=== PATIENT | female | born 1970 | race Caucasian/White ===

== ENCOUNTER 2024-06-02 03:37 | Emergency (ER) | payer OTHER ==
[~2024-06-02] VITALS: Ht 172.7 cm; Wt 86.2 kg
[2024-06-02] MEDS ORDERED: Methocarbamol 500 MG Tab PO ONE (04:05)
[2024-06-02] MEDS ORDERED: Lidocaine 4% 1 Patch TOP ONE (04:05)
[2024-06-02] MEDS ORDERED: Naproxen 250 MG TAB PO ONE (04:05)
[2024-06-02] MEDS ORDERED: NAPR500 PO (05:07)
[2024-06-02] MEDS ORDERED: METHOCARBAMOL1000 MG PO (05:07)
[2024-06-02] MEDS ORDERED: LIDO700A20 TOP (05:07)
== END 2024-06-02 05:14 | disposition home or self-care (01) ==
LOC: ER 03:37
DX: M62.830 Muscle spasm of back (principal); I10 Essential (primary) hypertension
CPT/HCPCS: 72100; 99283-25; A9270